=== PATIENT | male | born 2000 | race Hispanic/Latino ===

== ENCOUNTER 2021-08-14 15:28 | Emergency (ER) | payer MEDICAID ==
[~2021-08-14] VITALS: Ht 172.7 cm; Wt 136.1 kg
[2021-08-14 15:33] VITALS: BP 148/78
[2021-08-14] MEDS ORDERED: METH-662 PO (15:57)
[2021-08-14] MEDS ORDERED: ACET-2247 PO (15:57)
[2021-08-14] MEDS ORDERED: ACETAMINOPHEN 500 MG TABLET PO ONE (16:00)
[2021-08-14] MEDS ORDERED: ACETAMINOPHEN 500 MG TABLET ONE (16:02)
== END 2021-08-14 16:10 | disposition home or self-care (01) ==
LOC: EDH 15:28
DX: M54.50 Low back pain, unspecified (principal); E66.9 Obesity, unspecified; I10 Essential (primary) hypertension; Z68.42 Body mass index [BMI] 45.0-49.9, adult; Z88.6 Allergy status to analgesic agent; Z79.899 Other long term (current) drug therapy